=== PATIENT | female | born 1940 | race African-American/Black ===

== ENCOUNTER 2021-05-28 17:26 | Emergency (ER) | payer MEDICARE, OTHER ==
[~2021-05-28] VITALS: Ht 160 cm; Wt 64.0 kg
[2021-05-28 21:40] LABS: BASOPHILS % 0.5 % (0.0-2.0); EOSINOPHILS % 0.3 % (0.0-5.0); HEMATOCRIT. 36.3 % (36.0-48.0); HEMOGLOBIN. 11.8 g/dL (12.0-16.0); LYMPHOCYTES % 28.6 % (20.0-50.0); MEAN CORPUSCULAR HEMOGLOBIN 31.6 pg (28.0-32.0); MEAN PLATELET VOLUME 8.1 fl (7.4-10.4); MONOCYTES % 6.5 % (2.0-8.0); NEUTROPHILS % 64.1 % (40.0-76.0); PLATELET 173 x1000/uL (130-400); RED BLOOD CELL COUNT 3.75 mill/uL (4.2-5.4); RED CELL DISTRIBUTION WIDTH 13.2 % (11.6-14.6)
[2021-05-28 21:47] LABS: CHLORIDE 112 mEq/L (98-107)
[2021-05-29] MEDS ORDERED: SODIUM CHLORIDE 0.9% 1,000 ML IV ONE
[2021-05-29 00:26] LABS: CLARITY URINE CLEAR (CLEAR); COLOR URINE YELLOW (YELLOW); KETONES URINE NEGATIVE (NEGATIVE); LEUKOCYTE ESTERASE URINE NEGATIVE (NEGATIVE); NITRITE URINE NEGATIVE (NEGATIVE); OCCULT BLOOD URINE TRACE (NEGATIVE); PH URINE 8.5 (4.5-8.0); PROTEIN URINE 1+ (NEGATIVE); SPECIFIC GRAVITY URINE 1.007 (1.005-1.030); UROBILINOGEN URINE 0.2 E.U./dL (0.2-1.0)
[2021-05-29 01:17] VITALS: BP 162/84
== END 2021-05-29 02:01 | disposition home or self-care (01) ==
LOC: ER 17:26
DX: S02.2XXA Fracture of nasal bones, initial encounter for closed fracture (principal); F03.90 Unspecified dementia, unspecified severity, without behavioral disturbance, psychotic disturbance, mood disturbance, and anxiety; I10 Essential (primary) hypertension; W18.39XA Other fall on same level, initial encounter; Y93.89 Activity, other specified; Y92.89 Other specified places as the place of occurrence of the external cause; Y99.8 Other external cause status
CPT/HCPCS: 36415; 70450; 70486; 80053; 81003; 85025; 96360; 99285; J7030